=== PATIENT | male | born 1990 ===

== ENCOUNTER 2017-08-14 16:24 | Emergency (ER) | payer OTHER ==
[2017-08-14 16:57] VITALS: BP 125/77
[2017-08-14] MEDS ORDERED: Aspirin Low Dose CHEW TAB* 81 MG ONE (17:00)
[2017-08-14] MEDS ORDERED: Aspirin Low Dose CHEW TAB* 81 MG PO ONE (17:00)
--- NOTE | 2017-08-14 17:02 | UC ---
Cardiac HPI - HPI Summary HPI Summary: 26 yo male has had two episodes of exertional chest pain in the past 4-5 days Last episode occurred yesterday CP occurs while walking up a hill to his office lasts about 15 minutes and resolves with rest some dyspnea pain is substernal not radiating - History of Current Complaint Chief Complaint: UCCardiac Stated Complaint: CHEST PAIN Time Seen by Provider: 08/14/17 16:31 Hx Obtained From: Patient Onset/Duration: Sudden Onset, Lasting Minutes Timing: Intermittent Episodes Lasting: - 15-20 minutes Initial Severity: Moderate Current Severity: None Pain Intensity: 0 Chest Pain Location: Mid Sternal Character: Crushing, Tightness Aggravating Factor(s): Exertion - only happens on steep hill Alleviating Factor(s): Rest Associated Signs & Symptoms: Positive: Chest Pain - Risk Factors Pulmonary Embolism Risk Factors: Negative Cardiac Risk Factors: Negative Atrial Fibrillation: Negative TAD Risk Factors: Negative - Allergy/Home Medications Allergies/Adverse Reactions: Allergies Allergy/AdvReac Type Severity Reaction Status Date / Time No Known Allergies Allergy Verified 08/14/17 16:45 PMH/Surg Hx/FS Hx/Imm Hx Previously Healthy: Yes - Surgical History Surgical History: None - Family History Known Family History: Positive: Hypertension, Other - dyslipidemia - Social History Alcohol Use: None Substance Use Type: None Smoking Status (MU): Never Smoked Tobacco Have You Smoked in the Last Year: No - Immunization History Most Recent Influenza Vaccination: 08/2017 Review of Systems Constitutional: Negative Skin: Negative Eyes: Negative ENT: Negative Respiratory: Negative Cardiovascular: Chest Pain - none today Gastrointestinal: Negative Genitourinary: Negative Motor: Negative Neurovascular: Negative Musculoskeletal: Negative Neurological: Negative Psychological: Negative Is Patient Immunocompromised?: No All Other Systems Reviewed And Are Negative: Yes Physical Exam Triage Information Reviewed: Yes Appearance: Well-Appearing, No Pain Distress, Well-Nourished, Thin Vital Signs: Initial Vital Signs Temp 98 F 08/14/17 16:45 Pulse 94 08/14/17 16:45 Resp 20 08/14/17 16:45 BP 125/77 08/14/17 16:45 Pulse Ox 100 08/14/17 16:45 Eyes: Positive: Conjunctiva Clear ENT: Positive: Hearing grossly normal, Nasal congestion, Nasal drainage. Negative: Trismus, Muffled/hoarse voice Neck: Positive: Supple, Nontender Respiratory: Positive: Lungs clear, Normal breath sounds, No respiratory distress, No accessory muscle use Cardiovascular: Positive: RRR, No Murmur Abdomen Description: Positive: Nontender, No Organomegaly, Soft, Bruit. Negative: CVA Tenderness (R), CVA Tenderness (L) Bowel Sounds: Positive: Present Musculoskeletal: Positive: ROM Intact, No Edema Neurological Exam: Normal Neurological: Positive: Alert Psychological Exam: Normal Skin Exam: Normal Diagnostics - EKG Cardiac Rate: NL Cardiac Rhythm: Sinus: Normal - ? LAHB Ectopy: None ST Segment: Normal - Assessment/Plan Course Of Treatment: declines EMS transfer but will go to the ER - Clinical Impression Provider Diagnoses: Exertional chest pain ? etiology Discharge - Discharge Plan Condition: Guarded Disposition: AGAINST MEDICAL ADVICE
== END 2017-08-14 17:08 | disposition left against medical advice (07) ==
LOC: UCEAST 16:24
DX: R07.9 Chest pain, unspecified (principal)
CPT/HCPCS: 93005; 99212; A9270-GY; G0463

== ENCOUNTER → 2017-08-14 17:44 | Emergency (ER) | payer OTHER ==
[2017-08-14 18:53] LABS: Hematocrit 45 % (42-52); Mean Corpuscular HGB Conc 34 g/dl (31-36); Mean Corpuscular Hemoglobin 30 pg (27-31); Mean Corpuscular Volume 90 fL (80-94); Mean Platelet Volume 8 um3 (7.4-10.4); Red Blood Count 4.99 10^6/ul (4.0-5.4); Red Cell Distribution Width 13 % (10.5-15); White Blood Count 7.5 10^3/ul (3.5-10.8)
[2017-08-14 19:08] LABS: Albumin 4.7 g/dL (3.2-5.2); BUN/Creatinine Ratio 19.2 (8-20); Calcium 9.4 mg/dL (8.6-10.3); EGFR African American 164.5 (>60); EGFR Non-African American 127.9 (>60); Globulin 2.8 g/dL (2-4); Magnesium 2.1 mg/dL (1.9-2.7); Total Bilirubin 0.8 mg/dL (0.2-1.0); Total Protein 7.5 g/dL (6.4-8.9)
--- NOTE | 2017-08-14 19:17 | RAD ---
Indication: Midsternal chest pain while walking up a hill. Now resolved. Comparison: No relevant prior exams available on the [facility] for comparison. Technique: Upright AP 1845 hours Report: Clear lungs and pleural spaces. Negative for pneumothorax. The heart, pulmonary vasculature, and mediastinal contours are unremarkable. Unremarkable osseous structures and soft tissue contours. IMPRESSION: No evidence for acute intrathoracic disease.
[2017-08-14 19:48] LABS: TSH (Thyroid Stimulating Horm) 3.25 mcIU/mL (0.34-5.60)
--- NOTE | 2017-08-14 20:45 | ED ---
HPI Chest Pain - HPI Summary HPI Summary: Patient presents to the ED with CC of substernal chest pain which does not radiate x 2 days. Pain is worse with exertion and better with rest. He has noticed in on 2 separate occasions while at work. Pain is 3/10 and intermittent. Spontaneously resolves. Denies history of cardiac issues. Denies family history. Denies any pulm/lung problems. He has not tried to take any medications for relief. Denies heartburn. He notes the pain is described as a tightness to his chest without involvement of jaw or neck or arm. Denies N/V/C/D. Denies diaphoresis. Denies difficulty swallowing. He takes no medications and has no contributing medical history. - History of Current Complaint Chief Complaint: EDChestPainROMI Time Seen by Provider: 08/14/17 18:54 Hx Obtained From: Patient Timing: Constant Initial Severity: Mild Current Severity: Mild Pain Intensity: 0 Pain Scale Used: 0-10 Numeric Chest Pain Location: Discrete at:, Mid Sternal Chest Pain Radiates: No Character: Crushing, Dull/Aching Aggravating Factor(s): Exertion Alleviating Factor(s): Rest, Position Associated Signs and Symptoms: Positive: Chest Pain. Negative: Vision Changes, Anxiety, Recent Stress, Diaphoresis, Nausea, Palpitations, Productive Cough, Wheezing, Nasal Congestion - Risk Factors Pulmonary Embolism Risk Factors: Negative TAD Risk Factors: Negative - Allergy/Home Medications Allergies/Adverse Reactions: Allergies Allergy/AdvReac Type Severity Reaction Status Date / Time No Known Allergies Allergy Verified 08/14/17 16:45 PMH/Surg Hx/FS Hx/Imm Hx Previously Healthy: Yes Endocrine/Hematology History: Denies: Hx Diabetes, Hx Thyroid Disease Cardiovascular History: Denies: Hx Hypertension Respiratory History: Denies: Hx Asthma, Hx Chronic Obstructive Pulmonary Disease (COPD) GI History: Denies: Hx Ulcer - Immunization History Hx Pertussis Vaccination: No Immunizations Up to Date: Unable to Obtain/Confirm Infectious Disease History: No Infectious Disease History: Denies: Hx Clostridium Difficile, Hx Hepatitis, Hx Human Immunodeficiency Virus (HIV), Hx of Known/Suspected MRSA, Hx Shingles, Hx Tuberculosis, Hx Known/ Suspected VRE, Hx Known/Suspected VRSA, History Other Infectious Disease, Traveled Outside the [place] in Last 30 Days - Family History Known Family History: Positive: Hypertension, Other - dyslipidemia - Social History Occupation: Employed Part-time Lives: With Family Alcohol Use: None Hx Substance Use: No Substance Use Type: Reports: None Hx Tobacco Use: No Smoking Status (MU): Never Smoked Tobacco Have You Smoked in the Last Year: No Review of Systems Constitutional: Negative Negative: Fever, Chills, Fatigue Eyes: Negative ENT: Negative Negative: Epistaxis, Dental Pain Positive: Chest Pain. Negative: Palpitations Negative: Shortness Of Breath, Cough Gastrointestinal: Negative Positive: no symptoms reported, see HPI Musculoskeletal: Negative Neurological: Negative Psychological: Normal All Other Systems Reviewed And Are Negative: Yes Physical Exam Triage Information Reviewed: Yes Vital Signs On Initial Exam: Initial Vitals Temp Pulse Resp BP Pulse Ox 97.9 F 78 18 129/84 99 08/14/17 18:07 08/14/17 18:07 08/14/17 18:07 08/14/17 18:07 08/14/17 18:07 Vital Signs Reviewed: Yes Appearance: Positive: Well-Appearing, No Pain Distress, Well-Nourished Skin: Positive: Warm, Skin Color Reflects Adequate Perfusion Head/Face: Positive: Normal Head/Face Inspection Eyes: Positive: EOMI, DARLIN, Conjunctiva Clear Respiratory/Lung Sounds: Positive: Clear to Auscultation, Breath Sounds Present Cardiovascular: Positive: Normal, RRR, Pulses are Symmetrical in both Upper and Lower Extremities Abdomen Description: Positive: Nontender, No Organomegaly, Soft Musculoskeletal: Positive: Normal, Strength/ROM Intact Neurological: Positive: Speech Normal Psychiatric: Positive: Normal AVPU Assessment: Alert - [place]an Coma Scale Coma Scale Total: 15 Diagnostics - Vital Signs Vital Signs Temp Pulse Resp BP Pulse Ox 08/14/17 20:30 83 21 116/66 97 08/14/17 20:00 86 17 110/63 98 08/14/17 19:31 93 16 106/70 97 08/14/17 19:00 84 22 118/80 98 08/14/17 18:30 77 22 120/84 99 08/14/17 18:29 17 08/14/17 18:28 123/83 08/14/17 18:07 97.9 F 78 18 129/84 99 - Laboratory Lab Results: Lab Results 08/14/17 08/14/17 08/14/17 Range/Units 18:42 18:42 18:42 WBC 7.5 (3.5-10.8) 10^3/ul RBC 4.99 (4.0-5.4) 10^6/ul Hgb 15.0 (14.0-18.0) g/dl Hct 45 (42-52) % MCV 90 (80-94) fL MCH 30 (27-31) pg MCHC 34 (31-36) g/dl RDW 13 (10.5-15) % Plt Count 264 (150-450) 10^3/ul MPV 8 (7.4-10.4) um3 Neut % (Auto) 58.9 (38-83) % Lymph % (Auto) 32.8 (25-47) % [place] % (Auto) 5.8 (1-9) % Eos % (Auto) 1.5 (0-6) % Baso % (Auto) 1.0 (0-2) % Absolute Neuts (auto) 4.4 (1.5-7.7) 10^3/ul Absolute Lymphs (auto) 2.5 (1.0-4.8) 10^3/ul Absolute Monos (auto) 0.4 (0-0.8) 10^3/ul Absolute Eos (auto) 0.1 (0-0.6) 10^3/ul Absolute Basos (auto) 0.1 (0-0.2) 10^3/ul Absolute Nucleated RBC 0 10^3/ul Nucleated RBC % 0 Sodium 137 (133-145) mmol/L Potassium 4.0 (3.5-5.0) mmol/L Chloride 103 (101-111) mmol/L Carbon Dioxide 24 (22-32) mmol/L Anion Gap 10 (2-11) mmol/L BUN 14 (6-24) mg/dL Creatinine 0.73 (0.67-1.17) mg/dL Est GFR ( Amer) 164.5 (>60) Est GFR (Non-Af Amer) 127.9 (>60) BUN/Creatinine Ratio 19.2 (8-20) Glucose 88 (70-100) mg/dL Lactic Acid (0.5-2.0) mmol/L Calcium 9.4 (8.6-10.3) mg/dL Magnesium 2.1 (1.9-2.7) mg/dL Total Bilirubin 0.80 (0.2-1.0) mg/dL AST 17 (13-39) U/L ALT 18 (7-52) U/L Alkaline Phosphatase 58 (34-104) U/L Troponin I 0.00 (<0.04) ng/mL B-Natriuretic Peptide 14 ( - 100) pg/mL Total Protein 7.5 (6.4-8.9) g/dL Albumin 4.7 (3.2-5.2) g/dL Globulin 2.8 (2-4) g/dL Albumin/Globulin Ratio 1.7 (1-3) TSH 3.25 (0.34-5.60) mcIU/mL 08/14/17 Range/Units 18:42 WBC (3.5-10.8) 10^3/ul RBC (4.0-5.4) 10^6/ul Hgb (14.0-18.0) g/dl Hct (42-52) % MCV (80-94) fL MCH (27-31) pg MCHC (31-36) g/dl RDW (10.5-15) % Plt Count (150-450) 10^3/ul MPV (7.4-10.4) um3 Neut % (Auto) (38-83) % Lymph % (Auto) (25-47) % [place] % (Auto) (1-9) % Eos % (Auto) (0-6) % Baso % (Auto) (0-2) % Absolute Neuts (auto) (1.5-7.7) 10^3/ul Absolute Lymphs (auto) (1.0-4.8) 10^3/ul Absolute Monos (auto) (0-0.8) 10^3/ul Absolute Eos (auto) (0-0.6) 10^3/ul Absolute Basos (auto) (0-0.2) 10^3/ul Absolute Nucleated RBC 10^3/ul Nucleated RBC % Sodium (133-145) mmol/L Potassium (3.5-5.0) mmol/L Chloride (101-111) mmol/L Carbon Dioxide (22-32) mmol/L Anion Gap (2-11) mmol/L BUN (6-24) mg/dL Creatinine (0.67-1.17) mg/dL Est GFR ( Amer) (>60) Est GFR (Non-Af Amer) (>60) BUN/Creatinine Ratio (8-20) Glucose (70-100) mg/dL Lactic Acid 1.0 (0.5-2.0) mmol/L Calcium (8.6-10.3) mg/dL Magnesium (1.9-2.7) mg/dL Total Bilirubin (0.2-1.0) mg/dL AST (13-39) U/L ALT (7-52) U/L Alkaline Phosphatase (34-104) U/L Troponin I (<0.04) ng/mL B-Natriuretic Peptide ( - 100) pg/mL Total Protein (6.4-8.9) g/dL Albumin (3.2-5.2) g/dL Globulin (2-4) g/dL Albumin/Globulin Ratio (1-3) TSH (0.34-5.60) mcIU/mL Result Diagrams: 08/14/17 18:42 08/14/17 18:42 Lab Statement: Any lab studies that have been ordered have been reviewed, and results considered in the medical decision making process. Chest Pain Course/Dx - Course Course Of Treatment: During his course of treatment, he is evaluated for chest pain. Denies family or personal history. EKG shows sinus rythym borderline short MT interval. LAD, consider left anterior fascicular block. 2 trops negative. Xray with no acute changes. He is given aspirin on arrival. Pain is somewhat reproducible. Patient is encouraged to follow up with his PCP for further workup if symptoms persist. However, he agrees to return if any symptoms worsen. - Chest Pain Differential Diagnosis/HQI/PQRI: Acute MS, ACS, Chest Wall - Diagnoses Provider Diagnoses: Costochondral chest pain Discharge - Discharge Plan Condition: Stable Disposition: HOME Patient Education Materials: Costochondritis (ED) Referrals: Cy Vitale MD [Primary Care Provider] - Additional Instructions: Please return to the ED if symptoms become worse Ibuprofen 600mg three times daily for any discomfort As discussed, your labs, EKG and chest xray were all normal Please follow up with your PCP
[2017-08-14 21:43] VITALS: BP 105/72
== END | disposition home or self-care (01) ==
LOC: ED 17:44
DX: R07.1 Chest pain on breathing (principal)
CPT/HCPCS: 36415; 71010; 80053; 83605; 83735; 83880; 84443; 84484; 85025; 93005; 99283

== ENCOUNTER 2017-09-15 14:06 | Emergency (ER) | payer OTHER ==
--- NOTE | 2017-09-15 15:24 | RAD ---
HISTORY: Chest pain, headaches, dizziness COMPARISONS: August 14, 2017 VIEWS: 4: Frontal dual-energy and lateral views of the chest. FINDINGS: CARDIOMEDIASTINAL SILHOUETTE: The cardiomediastinal silhouette is normal. WILBUR: The wilbur are normal. PLEURA: The costophrenic angles are sharp. No pleural abnormalities are noted. LUNG PARENCHYMA: The lungs are clear. ABDOMEN: The upper abdomen is clear. There is no subphrenic gas. BONES AND SOFT TISSUES: No bone or soft tissue abnormalities are noted. OTHER: None. IMPRESSION: NO ACTIVE CARDIOPULMONARY DISEASE.
[2017-09-15 15:59] LABS: Hematocrit 43 % (42-52); Hemoglobin 14.6 g/dl (14.0-18.0); Mean Corpuscular HGB Conc 34 g/dl (31-36); Mean Corpuscular Hemoglobin 30 pg (27-31); Mean Corpuscular Volume 90 fL (80-94); Mean Platelet Volume 9 um3 (7.4-10.4); Red Blood Count 4.82 10^6/ul (4.0-5.4); Red Cell Distribution Width 13 % (10.5-15); White Blood Count 5.6 10^3/ul (3.5-10.8)
[2017-09-15] MEDS ORDERED: NS 0.9% 1000 ML* 1,000 ML IV ONE (16:11)
[2017-09-15] MEDS ORDERED: LORazepam INJ* 2 MG/ML 1 ML VIAL IV PUSH ONE (16:11)
[2017-09-15 16:18] LABS: Albumin 4.3 g/dL (3.2-5.2); BUN/Creatinine Ratio 14.7 (8-20); Calcium 9.2 mg/dL (8.6-10.3); EGFR African American 178.6 (>60); EGFR Non-African American 138.9 (>60); Globulin 2.7 g/dL (2-4); Potassium 3.9 mmol/L (3.5-5.0); Total Bilirubin 1.4 mg/dL (0.2-1.0)
[2017-09-15 16:33] LABS: Troponin I 0.02 ng/mL (<0.04)
--- NOTE | 2017-09-15 16:54 | RAD ---
Indication: Dizziness, LEFT side headache. Recent cardiac stent placement. Comparison: December 25, 2011 MRI. Technique: Noncontrast CT vertex of skull through foramen magnum. Report: The sulci, ventricles, and basal cisterns are normal for age. Carlson matter white matter differentiation is preserved without evidence for edema. No intra or extra axial hemorrhage, mass, or fluid collection detected. Unremarkable visualized orbital contents. Unremarkable calvarium and skull base. Unremarkable scalp. The visualized paranasal sinuses and mastoid air spaces are clear. IMPRESSION: Negative unenhanced head CT.
--- NOTE | 2017-09-15 17:35 | ED ---
John Ortiz Angela, scribed for Lefty Arenas MD on 09/15/17 at 1608 . Dizziness - HPI Summary HPI Summary: This pt is a 26 y/o male presenting to [facility] c/o dizziness and headache on the left side of his forehead. Pt states the headache on the left side of his forehead involves his eye, feeling pressure behind his eye. He also notes being anxious. Pt reports he had a cardiac stent placed last week on Friday, , at [facility] for a blockage. Pt states he was discharged the next day on 09/11. He notes that he had 1 month of chest pain prior to his stent but had no PMHx. Pt reports he was doing ok and taking anticoagulants. Pt is currently on Brilinta, Lipitor, and aspiring. This morning pt had muscle cramp in his leg and he took magnesium. Pt denies visual changes, chest pain, SOB. PMHx include anxiety. Pt denies FHx of cardiac disease. - History Of Current Complaint Chief Complaint: EDHeadache Stated Complaint: NOT FEELING RIGHT/DIZZY/NAUSEAS Hx Obtained From: Patient Onset/Duration: Still Present Timing: Days Character: Dizzy Aggravating Factor(s): Nothing Alleviating Factor(s): Nothing Associated Signs And Symptoms: Positive: Other: - headache involving his eye - Allergies/Home Medications Allergies/Adverse Reactions: Allergies Allergy/AdvReac Type Severity Reaction Status Date / Time No Known Allergies Allergy Verified 08/14/17 16:45 PMH/Surg Hx/FS Hx/Imm Hx Endocrine/Hematology History: Denies: Hx Diabetes, Hx Thyroid Disease Cardiovascular History: Reports: Hx Coronary Artery Disease - s/p cardiac stent Denies: Hx Hypertension Respiratory History: Denies: Hx Asthma, Hx Chronic Obstructive Pulmonary Disease (COPD) GI History: Denies: Hx Ulcer Infectious Disease History: No Infectious Disease History: Denies: Hx Clostridium Difficile, Hx Hepatitis, Hx Human Immunodeficiency Virus (HIV), Hx of Known/Suspected MRSA, Hx Shingles, Hx Tuberculosis, Hx Known/ Suspected VRE, Hx Known/Suspected VRSA, History Other Infectious Disease, Traveled Outside the [place] in Last 30 Days - Family History Known Family History: Positive: Hypertension, Other - dyslipidemia Negative: Cardiac Disease - Social History Alcohol Use: None Hx Substance Use: No Substance Use Type: Reports: None Hx Tobacco Use: No Smoking Status (MU): Never Smoked Tobacco Have You Smoked in the Last Year: No Review of Systems Negative: Fever, Chills Positive: Other - pressure behind left eye. Negative: Blurred Vision, Diplopia Negative: Chest Pain Negative: Shortness Of Breath Positive: Other - leg cramps Neurological: Other - dizziness Positive: Headache - left side of forehead, involving eye Positive: Anxious All Other Systems Reviewed And Are Negative: Yes Physical Exam Triage Information Reviewed: Yes Vital Signs On Initial Exam: Initial Vitals Temp Pulse Resp BP Pulse Ox 98.2 F 80 18 123/73 98 09/15/17 14:15 09/15/17 14:15 09/15/17 14:15 09/15/17 14:15 09/15/17 14:15 Vital Signs Reviewed: Yes Appearance: Positive: Well-Appearing, Well-Nourished Skin: Positive: Warm, Skin Color Reflects Adequate Perfusion, Dry Head/Face: Positive: Normal Head/Face Inspection Eyes: Positive: Normal ENT: Positive: Normal ENT inspection, Hearing grossly normal Respiratory/Lung Sounds: Positive: Clear to Auscultation, Breath Sounds Present Cardiovascular: Positive: Normal, RRR Musculoskeletal: Positive: Normal, Strength/ROM Intact Neurological: Positive: Normal, Sensory/Motor Intact, Alert, Oriented to Person Place, Time Psychiatric: Positive: Normal Diagnostics - Vital Signs Vital Signs Temp Pulse Resp BP Pulse Ox 09/15/17 14:15 98.2 F 80 18 123/73 98 - Laboratory Lab Results: Lab Results 09/15/17 Range/Units 15:46 WBC 5.6 (3.5-10.8) 10^3/ul RBC 4.82 (4.0-5.4) 10^6/ul Hgb 14.6 (14.0-18.0) g/dl Hct 43 (42-52) % MCV 90 (80-94) fL MCH 30 (27-31) pg MCHC 34 (31-36) g/dl RDW 13 (10.5-15) % Plt Count 243 (150-450) 10^3/ul MPV 9 (7.4-10.4) um3 Neut % (Auto) 68.8 (38-83) % Lymph % (Auto) 22.2 L (25-47) % [place] % (Auto) 7.1 (1-9) % Eos % (Auto) 1.2 (0-6) % Baso % (Auto) 0.7 (0-2) % Absolute Neuts (auto) 3.9 (1.5-7.7) 10^3/ul Absolute Lymphs (auto) 1.3 (1.0-4.8) 10^3/ul Absolute Monos (auto) 0.4 (0-0.8) 10^3/ul Absolute Eos (auto) 0.1 (0-0.6) 10^3/ul Absolute Basos (auto) 0 (0-0.2) 10^3/ul Absolute Nucleated RBC 0 10^3/ul Nucleated RBC % 0.1 Result Diagrams: 09/15/17 15:46 09/15/17 15:46 Lab Statement: Any lab studies that have been ordered have been reviewed, and results considered in the medical decision making process. - Radiology Chest XR Xray Interpretation: No Acute Changes - IMPRESSION: No active cardiopulmonary disease. ED physician has reviewed this radiology report and agrees. Radiology Interpretation Completed By: Radiologist - CT Brain CT CT Interpretation: No Acute Changes - IMPRESSION: Negative unenhanced head CT. ED physician has reviewed this radiology report and agrees. CT Interpretation Completed By: Radiologist - EKG 1548 Cardiac Rate: NL EKG Rhythm: Sinus Rhythm - 83 bpm EKG Interpretation: Normal axis. Normal intervals. No ischemic changes. Re-Evaluation - Re-Evaluation First Eval Re-Evaluation Time: 17:30 Change: Improved Comment: Pt is feeling much better after ativan. Dizzy Course/Dx - Course Assessment/Plan: Pt is a 26 y/o male who presents with dizziness and headache on the left side of his forehead, associated with pressure behind left eye. Blood work, chest XR, EKG, and CT brain were obtained. Chest XR shows no cardiopulmonary disease. Brain CT shows negative unenhanced head CT. EKG is NSR at 83 bpm. In the ED course, the pt was given IV fluids, ativan. Pt is feeling better after Ativan. His symptoms are probably secondary to anxiety. Pt will be discharged to home and is advised to follow up with his PCP in 2 days. - Diagnoses Provider Diagnoses: Anxiety Discharge - Discharge Plan Condition: Stable Disposition: HOME Patient Education Materials: Anxiety (ED) Referrals: Cy Vitale MD [Primary Care Provider] - 2 Days The documentation as recorded by the John arnold Angela accurately reflects the service I personally performed and the decisions made by me, Lefty Arenas MD.
[2017-09-15 17:46] VITALS: BP 107/76
== END 2017-09-15 17:47 | disposition home or self-care (01) ==
LOC: ED 14:06
DX: R42 Dizziness and giddiness (principal); F41.9 Anxiety disorder, unspecified; R51 Headache
CPT/HCPCS: 36415; 70450; 71020; 80053; 83605; 84484; 85025; 87040; 93005; 96374; 99283; J2060